=== PATIENT | male | born 1950 | race Hispanic/Latino ===

== ENCOUNTER 2017-03-28 07:50 | Emergency (ER) | payer MEDICARE ==
[~2017-03-28] VITALS: Ht 165.1 cm; Wt 73.0 kg
[2017-03-28] MEDS ORDERED: METFORMIN500 MG PO (08:09)
[2017-03-28] MEDS ORDERED: GLIPIZIDE5 MG PO (08:09)
[2017-03-28] MEDS ORDERED: LISINOPRIL10 MG PO (08:10)
[2017-03-28] MEDS ORDERED: ASPIRIN81 MG PO (08:10)
[2017-03-28] MEDS ORDERED: LEVAQUIN750 MG PO (08:11)
[2017-03-28] MEDS ORDERED: CLINDAMYCIN HC150 MG PO (08:11)
[2017-03-28 08:42] VITALS: BP 154/80
== END 2017-03-28 08:41 | disposition home or self-care (01) ==
LOC: ED 07:50
DX: M86.68 Other chronic osteomyelitis, other site (principal); K02.9 Dental caries, unspecified; I10 Essential (primary) hypertension; E11.9 Type 2 diabetes mellitus without complications

== ENCOUNTER 2018-01-26 08:38 | Emergency (ER) | payer MEDICARE ==
[~2018-01-26] VITALS: Ht 165.1 cm; Wt 70.0 kg
[~2018-01-26 08:38] MED LIST: ASPIRIN81 MG PO; CLINDAMYCIN HC150 MG PO; GLIPIZIDE5 MG PO; LEVAQUIN750 MG PO; LISINOPRIL10 MG PO; METFORMIN500 MG PO
[2018-01-26 09:35] LABS: HEMATOCRIT 38.8 % (39.0-50.0); HEMOGLOBIN 13.5 g/dl (14.0-18.0); IMMATURE GRANULOCYTES 0.6 % (0.0-5.0); MEAN CELL VOLUME 89.8 fL CALC (80.0-100.0); MEAN CORPUSCULAR HGB 31.3 pG CALC (26.0-32.0); MEAN CORPUSCULAR HGB CONC 34.8 g/L CALC (32.0-36.0); NEUT# 2.84 thou/uL (1.82-7.42); RED BLOOD COUNT 4.32 mill/uL (4.70-6.10); RED CELL DISTRI WIDTH 13.2 % (11.5-15.5)
[2018-01-26 09:41] LABS: ACT PARTIAL THROMBO TIME 25.9 SECONDS (20.0-32.5); PROTHROMBIN TIME 10.9 SECONDS (9.0-12.5)
[2018-01-26 09:42] LABS: ALBUMIN 4.2 g/dL (3.2-5.0); ALKALINE PHOSPHATASE 65 u/l (38-126); ANION GAP 18 (6-22 (CALC)); BILIRUBIN, TOTAL 0.7 mg/dL (0.0-1.4); BUN 18 mg/dL (8-23); BUN/CREATININE RATIO 23 (12-20 (CALC)); CARBON DIOXIDE 26 mmol/l (22-30); CHLORIDE 103 mmol/l (95-108); CREATININE 0.8 mg/dL (0.7-1.3); GFR > 60 ML/MIN (>=60 (CALC)); GFR FOR AFR.AMER. > 60 ML/MIN (>=60 (CALC)); SGOT/AST 30 u/l (19-48); SGPT/ALT 33 u/l (11-66); SODIUM 143 mmol/l (137-146)
[2018-01-26 09:50] LABS: MYOGLOBIN 31 ng/mL (0 - 121)
[2018-01-26 10:45] VITALS: BP 135/64
== END 2018-01-26 10:45 | disposition short-term general hospital (02) ==
LOC: ED 08:38
PROVIDERS: Family Medicine
DX: I63.9 Cerebral infarction, unspecified (principal); R29.810 Facial weakness; R47.1 Dysarthria and anarthria; E11.9 Type 2 diabetes mellitus without complications; I10 Essential (primary) hypertension; R29.702 NIHSS score 2

== ENCOUNTER 2018-07-10 14:09 | Emergency (ER) | payer MEDICARE ==
[~2018-07-10] VITALS: Ht 165.1 cm; Wt 77.3 kg
[2018-07-10] MEDS ORDERED: AUGMENTIN500TAB PO (14:44)
[2018-07-10] MEDS ORDERED: ATORVASTATIN CA20 MG PO (16:15)
[2018-07-10 16:34] VITALS: BP 125/78
== END 2018-07-10 16:34 | disposition home or self-care (01) ==
LOC: ED 14:09
DX: K04.7 Periapical abscess without sinus (principal); K08.89 Other specified disorders of teeth and supporting structures

== ENCOUNTER 2021-02-03 08:53 | Day surgery (SDC) | payer MEDICARE ==
[~2021-02-03] VITALS: Ht 165.1 cm; Wt 78.0 kg
[~2021-02-03 08:53] MED LIST changes: +ATORVASTATIN CA20 MG PO; +AUGMENTIN500TAB PO; +NO HOME MEDS
[2021-02-03 11:32] VITALS: BP 129/75
== END 2021-02-03 11:15 | disposition home or self-care (01) ==
LOC: ENDO 08:53
PROVIDERS: ATTEND Surgery
PROC: 0DJD8ZZ Inspection of Lower Intestinal Tract, Via Natural or Artificial Opening Endoscopic (ICD-10-PCS; principal; 2021-02-03)
DX: K57.30 Diverticulosis of large intestine without perforation or abscess without bleeding (principal); K64.8 Other hemorrhoids; I10 Essential (primary) hypertension; E11.9 Type 2 diabetes mellitus without complications; Z79.84 Long term (current) use of oral hypoglycemic drugs

== ENCOUNTER 2021-09-16 08:55 | Emergency (ER) | payer MEDICARE ==
[~2021-09-16] VITALS: Ht 165.1 cm; Wt 74.1 kg
[2021-09-16] VITALS (15 sets, daily range): BP systolic 106–169; BP diastolic 70–139
[2021-09-16 09:23] LABS: HEMATOCRIT 49.6 % (39.0-50.0); HEMOGLOBIN 17.1 g/dl (14.0-18.0); IMMATURE GRANULOCYTES 0.4 % (0.0-5.0); MEAN CELL VOLUME 91.3 fL CALC (80.0-100.0); MEAN CORPUSCULAR HGB 31.5 pG CALC (26.0-32.0); MEAN CORPUSCULAR HGB CONC 34.5 g/dL CAL (32.0-36.0); NEUT# 3.08 thou/uL (1.82-7.42); RED BLOOD COUNT 5.43 mill/uL (4.70-6.10)
[2021-09-16 09:40] LABS: ALBUMIN 4.6 g/dL (3.2-5.0); ALKALINE PHOSPHATASE 83 u/l (38-126); BILIRUBIN, TOTAL 0.7 mg/dL (0.0-1.4); BUN 21 mg/dL (8-23); BUN/CREATININE RATIO 20 (12-20 (CALC)); CHLORIDE 102 mmol/l (95-108); CREATININE 1.1 mg/dL (0.7-1.3); GFR > 60 ML/MIN (>=60 (CALC)); GFR FOR AFR.AMER. > 60 ML/MIN (>=60 (CALC)); SGOT/AST 33 u/l (19-48); SODIUM 139 mmol/l (137-146); TOTAL PROTEIN 7.9 g/dL (6.3-8.2)
[2021-09-16 09:45] LABS: ANION GAP 23 (6-22 (CALC)); CARBON DIOXIDE 18 mmol/l (22-30); POTASSIUM 3.6 mmol/l (3.5-5.1)
== END 2021-09-16 09:49 | disposition short-term general hospital (02) ==
LOC: ED 08:55
PROVIDERS: Family Medicine
DX: I21.3 ST elevation (STEMI) myocardial infarction of unspecified site (principal); I10 Essential (primary) hypertension; E11.9 Type 2 diabetes mellitus without complications; Z86.73 Personal history of transient ischemic attack (TIA), and cerebral infarction without residual deficits; Z79.84 Long term (current) use of oral hypoglycemic drugs; Z20.822 Contact with and (suspected) exposure to COVID-19
CPT/HCPCS: J1644